=== PATIENT | male | born 1965 | race Caucasian/White ===

== ENCOUNTER → 2021-01-23 | Day surgery (SDC) | payer OTHER ==
[~2021-01-23] MED LIST: 50% Dextrose in Water 50 ML Syringe IVPUSH PRN; Acetaminophen/oxyCODONE 325-5 MG Tab PO PRN; Dexamethasone 4 MG/ML SDV ONE; Glucagon,Human Recombinant 1 MG Vial IM PRN; HYDROmorphone 1 MG/ML Syringe IVPUSH STA; Insulin Regular, Human 100 Units/ML 3 ML Vial SUBCUT STA; Ketamine 200 MG/20 ML MDV ONE; Ketorolac 60 MG/2 ML SDV ONE; Lactated Ringers 1,000 ML IV SCH; Lidocaine 1% 30 ML SDV ONE; Lidocaine 2% 5 ML SDV ONE; Metoclopramide 10 MG/2 ML SDV ONE; Midazolam 1 MG/ML 2 ML SDV ONE; Morphine 4 MG/ML VIAL IV PRN; Ondansetron 4 MG/2 ML SDV IVPUSH PRN; Ondansetron 4 MG/2 ML SDV ONE; Phenylephrine 1% 10 MG/ML SDV ONE; Propofol 200 MG/20 ML SDV ONE; Rocuronium 50 MG/5 ML Vial ONE; Sodium Chloride 0.9% 10 ML Syringe FLUSH PRN; ceFAZolin 1 GM Vial IVPUSH ONE; ePHEDrine 50 MG/ML SDV ONE; fentaNYL 100 MCG/2 ML SDV ONE
--- NOTE | 2021-01-23 20:57 | OR ---
DATE OF OPERATION: 01/23/2021 PREOPERATIVE DIAGNOSIS: INCARCERATED RIGHT INGUINAL HERNIA. POSTOPERATIVE DIAGNOSIS: INCARCERATED RIGHT DIRECT INGUINAL HERNIA. SURGEON: Dante Varghese MD ANESTHESIA: General. ESTIMATED BLOOD LOSS: Minimal. SPECIMEN: None. INDICATIONS: This 55-year-old male has had a long-standing right inguinal hernia. However, over the last 12 hours, he has a large bulge that is firm, hot, hard, and is not reducible. His pain has markedly increased. He has a physical examination compatible with incarcerated hernia. It is not reducible. FINDINGS: Incarcerated direct right inguinal hernia. DESCRIPTION OF PROCEDURE: After adequate preparation, an incision was made over the right groin and carried down through the external abdominal oblique to expose a large hernia defect in the groin. This was somewhat hard to figure out initially and dissect free from the cord structures. Eventually, this was then showed this to be a direct inguinal hernia and Hesselbach's triangle, did not have a sac like an indirect along the cord as this was able to be reduced. The bowel contents and omentum inside of the hernia sac appeared viable. It was slightly dusky, but obviously okay. The hernia was reduced and then a mesh placement over the inguinal floor was sewn in place using a synthetic Prolene mesh and Prolene suture to attach this to the inguinal ligament and the rectus abdominis muscle. One other small corner patch was placed in the medial side as there was not quite happy with how wide the defect needed to be covered, so an extra-small patch was placed over the medial side of the triangle. Hemostasis was controlled. The external oblique was oversewn over the inguinal floor 0 Vicryl was used for the subcutaneous fat area and 4-0 Vicryl for the skin. BPB/MODL /[id number]
--- NOTE | 2021-01-24 08:18 | PCM.SN.2 ---
- Free Text/Narrative Note: Stale POD#1. Pain controlled. PO liquid good. Ambulates without difficulty. Wound clean and dry. Can discharge now. FU my clinic 02-05-21 if needed. Percocet #10 given for pain.
== END | disposition home or self-care (01) ==
LOC: CC.SDS 10:08
PROVIDERS: ATTEND Surgery
DX: K40.30 Unilateral inguinal hernia, with obstruction, without gangrene, not specified as recurrent (principal); E78.1 Pure hyperglyceridemia; I10 Essential (primary) hypertension; E11.9 Type 2 diabetes mellitus without complications; E66.9 Obesity, unspecified; Z68.35 Body mass index [BMI] 35.0-35.9, adult; Z79.82 Long term (current) use of aspirin; Z79.84 Long term (current) use of oral hypoglycemic drugs; Z79.899 Other long term (current) drug therapy; Z87.891 Personal history of nicotine dependence; Z01.812 Encounter for preprocedural laboratory examination; Z20.822 Contact with and (suspected) exposure to COVID-19
CPT/HCPCS: 00830; 82947; J0690; J1100; J1170; J1815-GY; J1885; J2250; J2370; J2405; J2704; J2765; J3010; J7120; U0002